=== PATIENT | female | born 1990 | race Caucasian/White ===

== ENCOUNTER 2016-09-02 22:17 | Emergency (ER) | payer OTHER, BC ==
[2016-09-02 22:24] VITALS: BP 115/70
--- NOTE | 2016-09-02 22:32 | EDM.PDOC ---
ED HPI Trauma - General Chief Complaint: Upper Extremity Injury/Pain Stated Complaint: PAIN RT SHOULDER/ARM Time Seen by Provider: 09/02/16 22:27 - History of Present Illness INITIAL COMMENTS - FREE TEXT/NARRATIVE: HISTORY AND PHYSICAL: History of present illness: Patient is 26-year-old white female who presents with right elbow pain she is getting physical therapy for recent shoulder injury and has been doing some rehabilitation she states she the therapist aware that she is having some elbow pain with these pull downs. She denies any new trauma or direct trauma or elbow fever chills or other complaints Review of systems: As per history of present illness and below otherwise all systems reviewed and negative. Past medical history: As per history of present illness and as reviewed below otherwise noncontributory. Surgical history: As per history of present illness and as reviewed below otherwise noncontributory. Social history: No reported history of drug or alcohol abuse. Family history: As per history of present illness and as reviewed below otherwise noncontributory. Physical exam: HEENT: Atraumatic, normocephalic, pupils reactive, negative for conjunctival pallor or scleral icterus, mucous membranes moist, throat clear, neck supple, nontender, trachea midline. Lungs: Clear to auscultation, breath sounds equal bilaterally, chest nontender. Heart: S1S2, regular, negative for clicks, rubs, or JVD. Abdomen: Soft, nondistended, nontender. Negative for masses or hepatosplenomegaly. Negative for costovertebral tenderness. Pelvis: Stable nontender. Genitourinary: Deferred. Rectal: Deferred. Extremities: Patient has mild tenderness posteriorly to [place] is no point tenderness no crepitation no significant swelling erythema CMS neurovascular signs unremarkable she is slightly limited range of motion secondary to pain Neuro: Awake, alert, oriented. Cranial nerves II through XII unremarkable. Cerebellum unremarkable. Motor and sensory unremarkable throughout. Exam nonfocal. Diagnostics: X-ray right elbow Therapeutics: Sling Impression: #1 right elbow pain Definitive disposition and diagnosis as appropriate pending reevaluation and review of above. Allergies/ADRs: Allergies No Known Allergies Allergy (Verified 09/02/16 22:20) Home Medications: Ambulatory Orders . [No Known Home Meds] 09/02/16 [Confirmed 09/02/16] Past Medical History [employer]ATH[employer] History: Reports: , Spontaneous Psychiatric History: Reports: None Hematologic History: Reports: Anemia - Infectious Disease History Infectious Disease History: Reports: None - Past Surgical History HEENT Surgical History: Reports: Oral surgery, Tonsillectomy Social & Family History - Tobacco Use Smoking Status *Q: Never Smoker Review of Systems - Review of Systems Review Of Systems: ROS reveals no pertinent complaints other than HPI. Trauma Exam - Physical Exam Exam: See Below (See dictation) Course - Vital Signs Last Recorded V/S: Last Vital Signs Temp 36.4 C 09/02/16 22:20 Pulse 90 09/02/16 22:20 Resp 16 09/02/16 22:20 BP 115/70 09/02/16 22:20 Pulse Ox 99 09/02/16 22:20 - Orders/Labs/Meds Orders: Active Orders 24 hr Category Date Time Status Elbow Min 3V Rt [CR] Stat Exams 09/02/16 22:22 Ordered Departure - Departure Time of Disposition: 22:29 Disposition: Home, Self-Care 01 Condition: good Clinical Impression: Elbow pain Forms: ED Department Discharge Additional Instructions: The following information is given to patients seen in the emergency department who are being discharged to home. This information is to outline your options for follow-up care. We provide all patients seen in our emergency department with a follow-up referral. The need for follow-up, as well as the timing and circumstances, are variable depending upon the specifics of your emergency department visit. If you don't have a primary care physician on staff, we will provide you with a referral. We always advise you to contact your personal physician following an emergency department visit to inform them of the circumstance of the visit and for follow-up with them and/or the need for any referrals to a consulting specialist. The emergency department will also refer you to a specialist when appropriate. This referral assures that you have the opportunity for followup care with a specialist. All of these measure are taken in an effort to provide you with optimal care, which includes your followup. Under all circumstances we always encourage you to contact your private physician who remains a resource for coordinating your care. When calling for followup care, please make the office aware that this follow-up is from your recent emergency room visit. If for any reason you are refused follow-up, please contact the [facility] emergency department at and asked to speak to the emergency department charge nurse. Sling as directed Motrin or Tylenol as directed follow up physical therapy/ private medical doctor 24-48 hours return as needed as discussed - My Orders Last 24 Hours: My Active Orders 09/02/16 22:22 Elbow Min 3V Rt [CR] Stat - Assessment/Plan Last 24 Hours: My Active Orders 09/02/16 22:22 Elbow Min 3V Rt [CR] Stat
--- NOTE | 2016-09-03 20:06 | CR ---
EXAM DATE: 09/02/16 PATIENT'S AGE: 26 Patient: ARLENE POE Facility: [place], [place] Site . Site : 1990 Study: XRay Extremity Right [id number] 10:34:26 PM Ordering Physician: Doctor Naranjo Final Report: INDICATION: Elbow Pain and Mild Swelling TECHNIQUE: Elbow radiograph 3 views right COMPARISON: None FINDINGS: Bones: Alignment is normal. No acute fractures or aggressive bone lesions identified. Joint spaces: Unremarkable. No displacement of the anterior or posterior fat pads are noted to suggest an elbow effusion. Soft tissues: Unremarkable. No radiopaque foreign bodies are seen. Minimal calcification of the distal triceps tendon is noted. IMPRESSION: 1. No acute osseous injuries are noted. Dictated by: Shravan Candelaria MD @ 09/02/2016 22:38:21 (Electronic Signature) Report Signed by Proxy and Original Signed Document filed in the Medical Record. [facility]
== END 2016-09-02 22:46 | disposition home or self-care (01) ==
LOC: MW.ED 22:17
DX: M25.521 Pain in right elbow (principal); Z86.2 Personal history of diseases of the blood and blood-forming organs and certain disorders involving the immune mechanism; Z98.890 Other specified postprocedural states
CPT/HCPCS: 73080-26-RT; 73080-RT; 99282; 99283